=== PATIENT | female | born 1975 | race Caucasian/White ===

== ENCOUNTER 2016-12-02 07:43 | Inpatient (IN) | payer OTHER ==
[~2016-12-02] VITALS: Ht 172.7 cm; Wt 99.8 kg
[2016-12-02 08:39] LABS: HEMOGLOBIN 16.4 gm/dl (12.3-15.3); RED BLOOD COUNT 5.61 M/UL (4.00-5.10); WHITE BLOOD COUNT 11.6 K/UL (4.5-11.0)
[2016-12-02 08:55] LABS: BUN/CREATININE RATIO 23 (0-10)
[2016-12-02] MEDS ORDERED: IPRAT-ALBUT 0.5-3 ML INH (16:16)
[2016-12-02] MEDS ORDERED: VENTOLIN HFA 66.7 GM INH (16:17)
[2016-12-02] MEDS ORDERED: IBUPROFEN800 MG PO (16:17)
[2016-12-02] MEDS ORDERED: TRANEXAMIC ACI650 MG PO (16:18)
[2016-12-02] MEDS ORDERED: HYDROCHLOROTHIA25 MG PO (16:19)
[2016-12-02] MEDS ORDERED: METOPROLOL TART25 MG PO (16:20)
[2016-12-02] MEDS ORDERED: ELAVIL 50 MG TA50 MG PO (16:20)
[2016-12-02] MEDS ORDERED: CYMBALTA60 MG PO (16:20)
[2016-12-02 22:41] LABS: ADENOVIRUS F 40/41 Not Detected (Negative); ASTROVIRUS Not Detected (Negative); CAMPYLOBACTER Not Detected (Negative); CRYPTOSPORIDIUM Not Detected (Negative); E.COLI 0157 Not Detected (Negative); ENTAMOEBA HISTOLYTICA Not Detected (Negative); ENTEROAGGREGATIVE E.COLI (EAEC Not Detected (Negative); ENTEROPATHOGENIC E.COLI (EPEC) Not Detected (Negative); ENTEROTOXIGENIC E.COLI (ETEC) Not Detected (Negative); GIARDIA LAMBLIA Not Detected (Negative); NOROVIRUS GI/GII Not Detected (Negative); PLESIOMONAS SHIGELLOIDES Not Detected (Negative); ROTOVIRUS A Not Detected (Negative); SALMONELLA Not Detected (Negative); SAPOVIRUS Not Detected (Negative); SHIG/ENTEROINVAS.ECOLI (EIEC) Not Detected (Negative); SHIGA-LIK TOX.PRO.E.COLI (STEC Not Detected (Negative); VIBRIO Not Detected (Negative); VIBRIO CHOLERAE Not Detected (Negative); YERSINIA ENTEROCOLITICA Not Detected (Negative)
[2016-12-03 06:21] LABS: BUN/CREATININE RATIO 25 (0-10)
[2016-12-03 06:45] LABS: HEMOGLOBIN 12.3 gm/dl (12.3-15.3); RED BLOOD COUNT 4.23 M/UL (4.00-5.10); WHITE BLOOD COUNT 6.7 K/UL (4.5-11.0)
[2016-12-03 08:42] LABS: CLOSTRIDIUM DIFFICILE TOX A/B DETECTED (Negative)
[2016-12-05 07:32] LABS: HEMOGLOBIN 11.2 gm/dl (12.3-15.3); RED BLOOD COUNT 3.85 M/UL (4.00-5.10); WHITE BLOOD COUNT 4.3 K/UL (4.5-11.0)
[2016-12-05 07:55] LABS: BUN/CREATININE RATIO 33 (0-10)
[2016-12-05] MEDS ORDERED: VANCOCIN 125MG/2.5ML PO (17:19)
== END 2016-12-05 18:14 | disposition home or self-care (01) | DRG 372 ==
LOC: ER1 07:43 → ZEROF 14:02 → MED SURG 4 14:29
PROVIDERS: Physician Assistant; ADMIT Hospitalist
DX: A04.7 Enterocolitis due to Clostridium difficile (principal); E87.2 Acidosis; E86.0 Dehydration; R11.2 Nausea with vomiting, unspecified; D75.1 Secondary polycythemia; E87.6 Hypokalemia; Z93.3 Colostomy status; Z90.49 Acquired absence of other specified parts of digestive tract; F12.10 Cannabis abuse, uncomplicated; J45.909 Unspecified asthma, uncomplicated; I10 Essential (primary) hypertension; Z98.890 Other specified postprocedural states; F17.210 Nicotine dependence, cigarettes, uncomplicated; E66.9 Obesity, unspecified; Z68.33 Body mass index [BMI] 33.0-33.9, adult; Z88.5 Allergy status to narcotic agent; Z91.040 Latex allergy status; Z88.8 Allergy status to other drugs, medicaments and biological substances; Z79.899 Other long term (current) drug therapy; Z79.1 Long term (current) use of non-steroidal anti-inflammatories (NSAID); K76.0 Fatty (change of) liver, not elsewhere classified; R00.0 Tachycardia, unspecified
CPT/HCPCS: 36415; 80048; 80053; 80307; 81001; 82150; 82272; 82803; 82962; 83605; 83690; 83735; 84703; 85025; 85027; 87040; 87081; 87086; 87507; 87880; 89055; 93005; 96361; 96374; 96375; 96376; 99285; C9113; G0480; J1335; J1956; J2270; J2405; J2765; J7030; J7050; Q9962

== ENCOUNTER 2016-12-24 12:39 | Inpatient (IN) | payer OTHER ==
[~2016-12-24] VITALS: Ht 172.7 cm; Wt 100.8 kg
[~2016-12-24 12:39] MED LIST: CYMBALTA60 MG PO; ELAVIL 50 MG TA50 MG PO; HYDROCHLOROTHIA25 MG PO; IBUPROFEN800 MG PO; IPRAT-ALBUT 0.5-3 ML INH; METOPROLOL TART25 MG PO; TRANEXAMIC ACI650 MG PO; VANCOCIN 125MG/2.5ML PO; VENTOLIN HFA 66.7 GM INH
[2016-12-24 13:35] LABS: HEMOGLOBIN 14.3 gm/dl (12.3-15.3); RED BLOOD COUNT 4.81 M/UL (4.00-5.10); WHITE BLOOD COUNT 21.8 K/UL (4.5-11.0)
[2016-12-24 13:52] LABS: BUN/CREATININE RATIO 12 (0-10)
[2016-12-24] MEDS ORDERED: TESSALON PERLE100 MG PO (20:40)
[2016-12-24] MEDS ORDERED: METOPROLOL TART25 MG PO (21:51)
[2016-12-24 22:25] LABS: ADENOVIRUS F 40/41 Not Detected (Negative); ASTROVIRUS Not Detected (Negative); CAMPYLOBACTER Not Detected (Negative); CRYPTOSPORIDIUM Not Detected (Negative); E.COLI 0157 Not Detected (Negative); ENTAMOEBA HISTOLYTICA Not Detected (Negative); ENTEROAGGREGATIVE E.COLI (EAEC Not Detected (Negative); ENTEROPATHOGENIC E.COLI (EPEC) Not Detected (Negative); ENTEROTOXIGENIC E.COLI (ETEC) Not Detected (Negative); GIARDIA LAMBLIA Not Detected (Negative); NOROVIRUS GI/GII Not Detected (Negative); PLESIOMONAS SHIGELLOIDES Not Detected (Negative); ROTOVIRUS A Not Detected (Negative); SALMONELLA Not Detected (Negative); SAPOVIRUS Not Detected (Negative); SHIG/ENTEROINVAS.ECOLI (EIEC) Not Detected (Negative); SHIGA-LIK TOX.PRO.E.COLI (STEC Not Detected (Negative); VIBRIO Not Detected (Negative); VIBRIO CHOLERAE Not Detected (Negative); YERSINIA ENTEROCOLITICA Not Detected (Negative)
[2016-12-25 04:49] LABS: HEMOGLOBIN 11.2 gm/dl (12.3-15.3); RED BLOOD COUNT 3.83 M/UL (4.00-5.10); WHITE BLOOD COUNT 11.9 K/UL (4.5-11.0)
[2016-12-25 04:58] LABS: BUN/CREATININE RATIO 13 (0-10)
[2016-12-25 10:59] LABS: CLOSTRIDIUM DIFFICILE TOX A/B DETECTED (Negative)
[2016-12-26 04:40] LABS: RED BLOOD COUNT 3.84 M/UL (4.00-5.10); WHITE BLOOD COUNT 6.1 K/UL (4.5-11.0)
[2016-12-26 04:55] LABS: BUN/CREATININE RATIO 8 (0-10)
[2016-12-27 19:36] LABS: BUN/CREATININE RATIO 10 (0-10)
[2016-12-27] MEDS ORDERED: VANCOCIN 125 M125 MG PO (21:01)
== END 2016-12-27 21:48 | disposition home or self-care (01) | DRG 872 ==
LOC: ER1 12:39 → ZEROF 16:22 → MED SURG 4 16:22
PROVIDERS: Emergency Medicine; ADMIT Internal Medicine
DX: A41.89 Other specified sepsis (principal); K52.1 Toxic gastroenteritis and colitis; E87.2 Acidosis; A04.7 Enterocolitis due to Clostridium difficile; Z90.49 Acquired absence of other specified parts of digestive tract; J45.909 Unspecified asthma, uncomplicated; I10 Essential (primary) hypertension; F32.89 Other specified depressive episodes; F17.210 Nicotine dependence, cigarettes, uncomplicated; E87.6 Hypokalemia; E66.9 Obesity, unspecified; T36.95XA Adverse effect of unspecified systemic antibiotic, initial encounter; Y92.009 Unspecified place in unspecified non-institutional (private) residence as the place of occurrence of the external cause; Z88.8 Allergy status to other drugs, medicaments and biological substances; Z86.19 Personal history of other infectious and parasitic diseases; Z91.040 Latex allergy status; Z79.51 Long term (current) use of inhaled steroids; Z79.899 Other long term (current) drug therapy; Z82.49 Family history of ischemic heart disease and other diseases of the circulatory system; Z80.3 Family history of malignant neoplasm of breast
CPT/HCPCS: 36415; 80048; 80053; 81001; 82330; 83036; 83605; 83690; 84132; 84703; 85025; 85027; 87040; 87086; 87177; 87507; 93005; 96361; 96374; 96375; 96376; 99285; J2270; J2405; J7030; J7050; Q9962

== ENCOUNTER → 2020-07-28 | Outpatient (CLI) | payer BC, OTHER ==
[~2020-07-28] MED LIST changes: +ENDOCET 5-3251 EACH PO; +LODINE CAP 300300 MG PO; +NORFLEX 100 MG100 MG PO; +TESSALON PERLE100 MG PO; +VANCOCIN 125 M125 MG PO
== END ==
LOC: EXRD 08:30
DX: M81.0 Age-related osteoporosis without current pathological fracture (principal)
CPT/HCPCS: 77080

== ENCOUNTER → 2020-08-21 | Outpatient (CLI) | payer BC, OTHER | LOC: KOH-I 11:09 | DX: S32.012A Unstable burst fracture of first lumbar vertebra, initial encounter for closed fracture (principal); M43.16 Spondylolisthesis, lumbar region; M51.36 Other intervertebral disc degeneration, lumbar region; M48.061 Spinal stenosis, lumbar region without neurogenic claudication | CPT/HCPCS: 72148 ==

== ENCOUNTER 2021-02-06 11:39 | Emergency (ER) | payer BC, OTHER ==
[2021-02-06 13:17] LABS: HEMOGLOBIN 13.8 gm/dl (12.3-15.3); RED BLOOD COUNT 4.98 M/UL (4.00-5.10); WHITE BLOOD COUNT 10.6 K/UL (4.5-11.0)
[2021-02-06 13:58] LABS: BUN/CREATININE RATIO 19 (0-10)
[2021-02-06] MEDS ORDERED: VANCOMYCIN HCL125 MG PO (17:18)
[2021-02-06] MEDS ORDERED: ZOFRAN4 MG PO (17:18)
[2021-02-06] MEDS ORDERED: HYDROCODON-ACE1 EAC4 PO (17:21)
== END 2021-02-06 17:30 | disposition home or self-care (01) ==
LOC: ER1 11:39
PROVIDERS: Physician Assistant Medical
DX: K52.9 Noninfective gastroenteritis and colitis, unspecified (principal); J45.909 Unspecified asthma, uncomplicated; Z90.49 Acquired absence of other specified parts of digestive tract; F17.210 Nicotine dependence, cigarettes, uncomplicated; Z88.8 Allergy status to other drugs, medicaments and biological substances
CPT/HCPCS: 80053; 81001; 83605; 83690; 84703; 85025; 85652; 86140; 87040; 96374; 96375; 96376; 99284; J2270; J2405; Q9967